=== PATIENT | female | born 1970 | race Hispanic/Latino ===

== ENCOUNTER 2017-07-14 16:01 | Emergency (ER) | payer BC | END 2017-07-14 17:08 | disposition home or self-care (01) | LOC: NAV ERS 16:01 | DX: J02.9 Acute pharyngitis, unspecified (principal); D64.9 Anemia, unspecified; F17.210 Nicotine dependence, cigarettes, uncomplicated; Z79.899 Other long term (current) drug therapy | CPT/HCPCS: 87081; 87430; 99283 ==

== ENCOUNTER 2020-08-18 21:26 | Emergency (ER) | payer OTHER, SELFPAY ==
[2020-08-18] MEDS ORDERED: Lidocaine 1% w/Epinephrine 1:100K 20 ML VIAL ONE (21:37)
[2020-08-18] MEDS ORDERED: Boostrix 0.5 ML (Tdap) VIAL ONE (21:38)
[2020-08-18] MEDS ORDERED: Bacitracin 1 PK ONE (22:02)
== END 2020-08-18 22:06 | disposition home or self-care (01) ==
LOC: NAV ERS 21:26
DX: S61.511A Laceration without foreign body of right wrist, initial encounter (principal); D64.9 Anemia, unspecified; E66.9 Obesity, unspecified; F17.210 Nicotine dependence, cigarettes, uncomplicated; Z23 Encounter for immunization; W54.0XXA Bitten by dog, initial encounter
CPT/HCPCS: 12002; 90471; 90715